=== PATIENT | male | born 2000 | race Caucasian/White ===

== ENCOUNTER 2018-06-14 14:05 | Emergency (ER) | payer BC ==
[~2018-06-14] VITALS: Ht 182.9 cm; Wt 71.6 kg
[2018-06-14 14:11] VITALS: TEMP 36.7; Ht 182.9 cm; Wt 71.6 kg
[2018-06-14] MEDS ORDERED: LORAZEPAM INJ 0.5 MG in SYRINGE 0.25 ML IV STA (14:52)
[2018-06-14] MEDS ORDERED: LORAZEPAM 2 MG/ML 1 ML VIAL IV SCH (14:53)
[2018-06-14] MEDS ORDERED: SODIUM CHLORIDE 0.9% 1000ML 1,000 ML IV ONE (15:00)
[2018-06-14 15:12] LABS: BASO % 0.4 %; BASO ABS # 0.03 K/uL (0-0.2); EOS ABS # 0.08 K/uL (0-0.5); HEMATOCRIT 44.7 % (42-52); HEMOGLOBIN 15.5 g/dL (14.0-18.0); IG# 0.01 K/uL (0.00-0.02); LYMPH % 23.9 %; LYMPH ABS # 1.94 K/uL (1.2-3.4); MEAN CELL VOLUME 85.6 fL (80-100); MEAN CORPUSCULAR HEMOGLOBIN 29.7 pg (25-34); MEAN CORPUSCULAR HGB CONC 34.7 g/dl (32-36); MEAN PLATELET VOLUME 9.9 fL (7.4-10.4); MONO % 10.7 %; MONO ABS # 0.87 K/uL (0.11-0.59); NEUT % 63.9 %; PLATELET COUNT 234 K/uL (130-400); RED CELL DISTRIBUTION WIDTH CV 13.3 % (11.5-14.5); RED CELL DISTRIBUTION WIDTH SD 41.5 fL (36.4-46.3); WHITE BLOOD COUNT 8.13 K/uL (4.8-10.8)
--- NOTE | 2018-06-14 15:18 | EMERGENCY ROOM VISIT NOTE ---
History First contact with patient: 14:25 Chief Complaint: ABDOMINAL PAIN Stated Complaint: MUCUS IN STOOL,STOMACH PAIN SEVERE DIARRHEA Nursing Triage Summary: c/o diarrhea and nausea for the past 5-6 mornings. seen by ME yesterday and given meds. not helping. Hx of IBS. History of Present Illness The patient is a 18 year old male who presents to the Emergency Room with complaints of intermittent abdominal pain that he describes as gas pains and light colored, watery diarrhea with mucus for the last 6 days. The patient has a history of IBS. He typically gets diarrhea with his symptoms. He thinks that his symptoms are brought on by stress. 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 In high school, the patient was put on Zoloft and saw a counselor, which seemed to help with his symptoms. He is currently doing neither of these. He has tried ibuprofen for his discomfort and Imodium with minimal relief. He denies any fever or chills. No nausea or vomiting. The [facility]. He was prescribed dicyclomine and omeprazole with no relief. No recent travel. Of note the patient has an appointment with a GI doctor on June 26 Review of Systems 10 system review performed and negative unless noted in HPI or below Past Medical/Surgical History Anxiety IBS Social History Smoking Status: Never Smoker Occupation Status: student, [employer] student Current/Historical Medications Scheduled Sertraline (Zoloft), 1 TAB PO DAILY Physical Exam Vital Signs Date Time Temp Pulse Resp B/P (MAP) Pulse Ox O2 Delivery O2 Flow Rate FiO2 06/14/18 17:15 75 126/76 98 06/14/18 15:18 71 134/68 98 Room Air 06/14/18 14:11 36.7 90 18 135/78 22 Room Air Physical Exam VITALS: Vitals are noted on the nurse's note and reviewed by myself. Vital signs stable. GENERAL: 18-year-old male, anxious in appearance,, SKIN: The skin was without rashes, erythema, edema, or bruising. HEAD: Normocephalic atraumatic. EYES: Conjunctivae without injection, sclerae without icterus. Extraocular movements intact. MOUTH: Mucous membranes slightly dry NECK: Supple without nuchal rigidity. No lymphadenopathy. Cervical spine is nontender. No JVD. HEART: Regular rate and rhythm without murmurs gallops or rubs. LUNGS: Clear to auscultation bilaterally without wheezes, rales or rhonchi. No accessory muscle use. ABDOMEN: Positive bowel sounds x 4.Soft, nontender, without organomegaly. No guarding or rebound tenderness. MUSCULOSKELETAL: No muscle atrophy, erythema, or edema noted. . Strength 5/5 throughout. NEURO: Patient was alert and oriented to person place and time. Normal sensation to touch. No focal neurological deficits. Medical Decision & Procedures Laboratory Results 06/14/18 14:34 Red Blood Count 5.22, Mean Corpuscular Volume 85.6, Mean Corpuscular Hemoglobin 29.7, Mean Corpuscular Hemoglobin Concent 34.7, Mean Platelet Volume 9.9, Neutrophils (%) (Auto) 63.9, Lymphocytes (%) (Auto) 23.9, Monocytes (%) (Auto) 10.7, Eosinophils (%) (Auto) 1.0, Basophils (%) (Auto) 0.4, Neutrophils # (Auto ) 5.20, Lymphocytes # (Auto) 1.94, Monocytes # (Auto) 0.87, Eosinophils # (Auto ) 0.08, Basophils # (Auto) 0.03 06/14/18 14:34 Test 06/14/18 14:34 White Blood Count 8.13 K/uL (4.8-10.8) Red Blood Count 5.22 M/uL (4.7-6.1) Hemoglobin 15.5 g/dL (14.0-18.0) Hematocrit 44.7 % (42-52) Mean Corpuscular Volume 85.6 fL (80-100) Mean Corpuscular Hemoglobin 29.7 pg (25-34) Mean Corpuscular Hemoglobin Concent 34.7 g/dl (32-36) Platelet Count 234 K/uL (130-400) Mean Platelet Volume 9.9 fL (7.4-10.4) Neutrophils (%) (Auto) 63.9 % Lymphocytes (%) (Auto) 23.9 % Monocytes (%) (Auto) 10.7 % Eosinophils (%) (Auto) 1.0 % Basophils (%) (Auto) 0.4 % Neutrophils # (Auto) 5.20 K/uL (1.4-6.5) Lymphocytes # (Auto) 1.94 K/uL (1.2-3.4) Monocytes # (Auto) 0.87 K/uL (0.11-0.59) Eosinophils # (Auto) 0.08 K/uL (0-0.5) Basophils # (Auto) 0.03 K/uL (0-0.2) RDW Standard Deviation 41.5 fL (36.4-46.3) RDW Coefficient of Variation 13.3 % (11.5-14.5) Immature Granulocyte % (Auto) 0.1 % Immature Granulocyte # (Auto) 0.01 K/uL (0.00-0.02) Anion Gap 8.0 mmol/L (3-11) Est Creatinine Clear Calc Drug Dose 124.3 ml/min Estimated GFR () 131.4 Estimated GFR (Non- 113.3 BUN/Creatinine Ratio 8.5 (10-20) Calcium Level 8.7 mg/dl (8.5-10.1) Magnesium Level 2.0 mg/dl (1.8-2.4) Total Bilirubin 0.5 mg/dl (0.2-1) Aspartate Amino Transf (AST/SGOT) 48 U/L (15-37) Alanine Aminotransferase (ALT/SGPT) 143 U/L (12-78) Alkaline Phosphatase 107 U/L (45-117) Total Protein 7.9 gm/dl (6.4-8.2) Albumin 3.9 gm/dl (3.4-5.0) Globulin 4.0 gm/dl (2.5-4.0) Albumin/Globulin Ratio 1.0 (0.9-2) Lipase 128 U/L (73-393) Medications Administered Medications (Trade) Dose Ordered Sig/Ailyn Route Start Time Stop Time Status Last Admin Dose Admin Sodium Chloride 1,000 ml @ 999 mls/hr Q1H1M ONCE IV 06/14/18 15:00 06/14/18 16:00 DC 06/14/18 15:14 999 MLS/HR Lorazepam (Ativan Inj) 0.5 mg TODAY@1453 IV 06/14/18 14:53 06/14/18 15:15 DC 06/14/18 15:14 0.5 MG Potassium Chloride (Klor-Con M10) 40 meq NOW STAT PO 06/14/18 16:28 06/14/18 16:29 DC 06/14/18 16:38 40 MEQ ED Course Patient was seen and examined Vital signs including blood pressure were reviewed medications list was verified with patient Labs were obtained, and a saline lock was established The patient was medicated with Ativan 0.5 mg IV and hydrated with 1 L of normal saline Upon reevaluation, the patient was resting comfortably and feeling better. We discussed his workup. He voiced understanding, was comfortable being discharged home. He was given 1 dose of potassium chloride 40 mEq by mouth I reviewed discharge instructions the patient. They voiced understanding and had no further questions. Medical Decision Differential diagnosis: IBS flare, anxiety, viral versus bacterial GI illness, diverticulitis, among others were entertained This patient is a 18-year-old male presents to the emergency department with abdominal cramping and severe diarrhea for the last 6 days. He has a history of IBS and anxiety. On exam, he was severely anxious in appearance. In the past, he has been on Zoloft and has been undergoing counseling for his symptoms. That seemed to help. He is not currently doing that. He is under a significant amount of stress with school. On exam, his abdomen was benign. He is nontoxic in appearance. Afebrile. There is no leukocytosis. I believe his anxiety is likely causing an IBS flare. The patient had good symptomatic relief in the emergency department. I will start him back on his Zoloft. He will follow-up with GI as scheduled on June 26, and return to the ED with any concerning symptoms This chart was completed in part utilizing [employer] Speech Voice Recognition software. Attempts were made to minimize the grammatical errors, random word insertions, pronoun errors and incomplete sentences. Any formal questions or concerns about the content, text or information contained within the body of this dictation should be directly addressed to the provider for clarification. Medication Reconcilliation Current Medication List: was personally reviewed by me Blood Pressure Screening Patient's blood pressure: Normal blood pressure Impression Primary Impression: Diarrhea Additional Impression: Anxiety Departure Information Dispostion Home / Self-Care Condition GOOD Prescriptions Sertraline (Zoloft) 50 Mg Tab 1 TAB PO DAILY for 30 Days, #30 TAB 1 Refill Prov: Leesa Palma PA-C 06/14/18 Referrals No Doctor, Assigned (PCP) Roger Calderon MD Patient Instructions [facility] Additional Instructions You have been evaluated in the emergency department for diarrhea. This is likely due to your IBS. Please take Zoloft 1 tab daily for anxiety. You may also take 1/2 tab for the first 5 days and titrate up to 1 full pill per day. Please try to stay well-hydrated. I recommend sports drinks such as Gatorade. You may take Imodium as needed for diarrhea Follow-up with GI as scheduled Please also follow-up with [facility] for a recheck Do not hesitate to return to the emergency department with any new, worsening or concerning symptoms; especially, fever, worsening abdominal pain, persistent vomiting or diarrhea It was a pleasure participating in your care today Problem Qualifiers
[2018-06-14 15:31] LABS: ALBUMIN 3.9 gm/dl (3.4-5.0); CALCIUM 8.7 mg/dl (8.5-10.1); CREATININE 0.96 mg/dl (0.60-1.40); POTASSIUM 3.3 mmol/L (3.5-5.1); TOTAL PROTEIN 7.9 gm/dl (6.4-8.2)
[2018-06-14] MEDS ORDERED: POTASSIUM CHLORIDE 10 MEQ TABCR PO STA (16:28)
[2018-06-14] MEDS ORDERED: SERT50TA PO (16:50)
[2018-06-14 17:15] VITALS: BP 126/76; PULSE 75; O2SAT 98
== END 2018-06-14 17:15 | disposition home or self-care (01) ==
LOC: C.EDB 14:07 → C.EDC 17:15
DX: R19.7 Diarrhea, unspecified (principal); F41.9 Anxiety disorder, unspecified; K58.9 Irritable bowel syndrome, unspecified; Z79.899 Other long term (current) drug therapy